=== PATIENT | male | born 1980 | race Caucasian/White ===

== ENCOUNTER 2021-07-13 22:19 | Emergency (ER) | payer OTHER | END 2021-07-13 23:58 | disposition home or self-care (01) | LOC: FER 22:19 | DX: S90.32XA Contusion of left foot, initial encounter (principal); F17.210 Nicotine dependence, cigarettes, uncomplicated; W22.8XXA Striking against or struck by other objects, initial encounter; Y92.89 Other specified places as the place of occurrence of the external cause; Y99.0 Civilian activity done for income or pay | CPT/HCPCS: 73630 ==

== ENCOUNTER 2022-01-02 04:29 | Emergency (ER) | payer OTHER ==
[2022-01-02] MEDS ORDERED: VIBRAMYCIN100 MG PO (04:58)
== END 2022-01-02 05:15 | disposition home or self-care (01) ==
LOC: FER 04:29
DX: S61.011A Laceration without foreign body of right thumb without damage to nail, initial encounter (principal); F17.210 Nicotine dependence, cigarettes, uncomplicated; Z23 Encounter for immunization; Z28.310 Unvaccinated for COVID-19; W22.8XXA Striking against or struck by other objects, initial encounter; Y92.89 Other specified places as the place of occurrence of the external cause; Y99.0 Civilian activity done for income or pay
CPT/HCPCS: 73120; 90471; 90715